=== PATIENT | female | born 1945 | race Caucasian/White ===

== ENCOUNTER 2022-06-16 22:08 | Inpatient (IN) | payer MEDICARE, MEDICAID ==
[~2022-06-16] VITALS: Ht 167.6 cm; Wt 62.0 kg
[2022-06-16] MEDS ORDERED: ETOMIDATE 2 MG/ML 10 ML VIAL ONE (22:15)
[2022-06-16] MEDS ORDERED: SUCCINYLCHOLINE CHLORIDE 20 MG/ML 10 ML VIAL ONE (22:16)
[2022-06-16] MEDS ORDERED: ACETAMINOPHEN 1000 MG/ISO-OSM 100 ML IV ONE (22:30)
[2022-06-16] MEDS ORDERED: ETOMIDATE 2 MG/ML 10 ML VIAL IVP ONE (22:30)
[2022-06-16] MEDS ORDERED: SODIUM CHLORIDE 0.9% 1,000 ML IV ONE ×2 (22:30→23:30)
[2022-06-16] MEDS ORDERED: SUCCINYLCHOLINE CHLORIDE 20 MG/ML 10 ML VIAL IVP ONE (22:30)
[2022-06-16 22:55] LABS: ABG BASE EXCESS -24.8 mmol/L (-2.0-3.0); ABG CARBOXYHEMOGLOBIN 0.3 % (0.0-1.5); ABG METHEMOGLOBIN 0.6 % (0.0-1.5); ABG OXYGEN CONTENT 21.6 mL/dL (15.0-23.0); ABG OXYGEN SATURATION 99.6 % (95.0-98.0); ABG OXYHEMOGLOBIN 98.7 % (94.0-100.0); ABG PCO2 30 mmHg (35-45); ABG TOTAL HEMOGLOBIN 14.6 G/dL (12.0-18.0); PO2, ARTERIAL BG 496.1 mmHg (75.0-83.0); SOURCE, BLOOD GAS ARTERIAL; TEMPERATURE, FAHRENHEIT, BG 101.6 FAHREN (96.0-98.6)
[2022-06-16 22:55] LABS: COVID AG,FIA SOURCE NASOPHARYNGEAL
[2022-06-16 22:56] LABS: ABG HCO3 8.2 mmol/L (22.0-26.0); ABG PH 6.975 (7.35-7.450); PEEP,BG 5 cm H2O; SITE, BLOOD GAS FEM; VT, ABG 500 ml
[2022-06-16 23:19] LABS: INFLUENZA TYPE A NEGATIVE FOR TYPE A (NEGATIVE); INFLUENZA TYPE B NEGATIVE FOR TYPE B (NEGATIVE)
[2022-06-16 23:19] LABS: BASOPHILS % (AUTO) 0.7 % (0.0-2.0); EOSINOPHILS % (AUTO) 0.8 % (1.0-6.0); HEMATOCRIT 41.3 % (36-46); HEMOGLOBIN 11.4 g/dL (12.0-16.0); LYMPHOCYTES # (AUTO) 0.6 K/uL (1.0-4.8); LYMPHOCYTES % (AUTO) 8.1 % (22.0-44.0); MEAN CORPUSCULAR HEMOGLOBIN 27.9 pg (26.0-34.0); MEAN CORPUSCULAR HGB CONC 27.6 G/dL (31.0-37.0); MEAN CORPUSCULAR VOLUME 101 fL (80-100); MONOCYTES # (AUTO) 0.2 K/uL (0.1-1.0); MONOCYTES % (AUTO) 2.5 % (2.0-9.0); RED BLOOD CELL COUNT(AUTO) 4.09 MIL/uL (4.00-5.20); RED CELL DISTRIBUTION WIDTH 18.9 % (11.5-14.5)
[2022-06-16 23:22] LABS: NEUTROPHILS % (AUTO) 87.9 % (40.0-70.0)
[2022-06-16 23:31] LABS: PLATELET COUNT (AUTO) 62 K/uL (150-450); PLATELET MORPHOLOGY COMMENT LARGE PLTS PRESENT
[2022-06-16 23:36] LABS: ALANINE AMINOTRANSFERASE 28 U/L (12-78); ALBUMIN 1.8 g/dL (3.4-5.0); ALKALINE PHOSPHATASE 130 U/L (46-116); ASPARTATE AMINOTRANSFERASE 33 U/L (15-37); BILIRUBIN,TOTAL 0.3 mg/dL (0.1-1.0); CALCIUM, TOTAL 7.2 mg/dL (8.8-10.5); CARBON DIOXIDE 10 mmol/L (22-29); CHLORIDE 135 mmol/L (98-107); CREATINE KINASE, TOTAL ONLY 190 U/L (26-192); CREATININE 3.42 mg/dL (0.60-1.30); POTASSIUM 5.3 mmol/L (3.5-5.1); TOTAL PROTEIN, SERUM 4.6 g/dL (6.4-8.2)
[2022-06-16 23:50] LABS: ANION GAP 21 mmol/L (8-16); GLOMERULAR FILTR. RATE CALC 13 mL/min (>60); LACTIC ACID 9.6 mmol/L (0.4-2.0); SODIUM SERUM 166 mmol/L (136-145)
[2022-06-16 23:51] LABS: GLUCOSE,RANDOM 652 mg/dL (70-110); UREA NITROGEN, BLOOD 123 mg/dL (7-18)
[2022-06-17] MEDS ORDERED: INSULIN REGULAR, HUMAN 100 UNITS/ML IVP ONE ×2 (00:15→07:15)
[2022-06-17] MEDS ORDERED: FentaNYL CIT 1000MCG/0.9% NACL 100 ML IV PRN (00:15)
[2022-06-17] MEDS ORDERED: SODIUM CHLORIDE 0.9% 1,000 ML IV ONE (00:15)
[2022-06-17] MEDS ORDERED: MIDAZOLAM HCL 100 MG in SODIUM CHLORIDE 0.9% 180 ML IV PRN (00:15)
[2022-06-17] MEDS ORDERED: NOREPINEPHRINE 8 MG/D5%-WATER 250 ML IV PRN (00:15)
[2022-06-17] MEDS ORDERED: LEVOFLOXACIN 500 MG/D5% WATER 100 ML IV ONE (00:15)
[2022-06-17] MEDS ORDERED: PIPERACILLIN/TAZO 3.375 GM/D5W 50 ML IV ONE (00:15)
[2022-06-17 00:49] LABS: APPEARANCE,URINE CLEAR (CLEAR); BILIRUBIN,URINE NEGATIVE (NEGATIVE); GLUCOSE, URINE (UA) >=1000 mg/dL (NEGATIVE); KETONES,URINE NEGATIVE (NEGATIVE); LEUKOCYTE ESTERASE ,URINE NEGATIVE (NEGATIVE); NITRATE,URINE NEGATIVE (NEGATIVE); OCCULT BLOOD,URINE NEGATIVE (NEGATIVE); PROTEIN,URINE NEGATIVE (NEGATIVE); SPECIFIC GRAVITIY, URINE 1.027 (1.003-1.030); UROBILINOGEN,URINE <=1.0 mg/dL (<=1.0)
[2022-06-17 01:01] LABS: BACTERIA,URINE None Seen /HPF (None Seen); MUCUS,URINE Few LPF (None Seen); RBC,URINE 0-2 /HPF (0-2); SQUAMOUS EPITHELIAL CELL,UR Few /LPF (None Seen); WBC,URINE 0-2 /HPF (0-5)
[2022-06-17] MEDS ORDERED: ACETAMINOPHEN 325 MG TABLET PO PRN (02:00)
[2022-06-17] MEDS ORDERED: INSULIN LISPRO 100 UNITS/ML SQ PRN (02:00)
[2022-06-17] MEDS ORDERED: SODIUM CHLORIDE 0.9% 1,000 ML IV SCH (02:00)
[2022-06-17] MEDS ORDERED: MORPHINE SULFATE 2 MG/ML SYRINGE IVP PRN (02:00)
[2022-06-17] MEDS ORDERED: *CLINICAL-CEFEPIME DOSING CLINICAL ONE (02:00)
[2022-06-17] MEDS ORDERED: ONDANSETRON HCL 4 MG/2 ML VIAL IVP PRN (02:00)
[2022-06-17] MEDS ORDERED: DEXTROSE 50%-WATER 25 GM/50 ML SYRINGE IVP PRN ×2 (02:00→03:00)
[2022-06-17] MEDS ORDERED: ATOR20TA65 PO (02:05)
[2022-06-17] MEDS ORDERED: LEVO25TA9 PO (02:05)
[2022-06-17] MEDS ORDERED: DOXY-354 PO (02:05)
[2022-06-17] MEDS ORDERED: PREN1CAP27 PO (02:05)
[2022-06-17] MEDS ORDERED: ACET325T51 PO (02:05)
[2022-06-17] MEDS ORDERED: DULO30CA52 PO (02:05)
[2022-06-17] MEDS ORDERED: VANCOMYCIN HCL 1.25 GM in DEXTROSE 5%-WATER 250 ML IV ONE (02:15)
[2022-06-17] MEDS ORDERED: VANCOMYCIN 1GM/WATER(PEG/NADA) 200 ML IV PRN (02:15)
[2022-06-17 02:29] LABS: CREATININE,URINE RANDOM 65.7 mg/dL (30.0-125.0)
[2022-06-17] MEDS ORDERED: ALBUTEROL SULFATE 2.5 MG/0.5 ML NEB SOLUTION NEB PRN (02:30)
[2022-06-17] MEDS ORDERED: IPRATROPIUM BROMIDE 0.5 MG/2.5 ML NEB SOLUTION NEB PRN (02:30)
[2022-06-17] MEDS ORDERED: SODIUM CHLORIDE 0.45% 1,000 ML IV ONE (02:30)
[2022-06-17 02:36] LABS: GLUCOSE,POINT OF CARE > 600 MG/DL (70-110)
[2022-06-17] MEDS ORDERED: DEXTROSE 5%-0.45% SODIUM CHL 1,000 ML IV PRN (03:00)
[2022-06-17] MEDS ORDERED: POTASSIUM CHLORIDE 40 MEQ in SODIUM CHLORIDE 0.45% 1,000 ML IV PRN (03:00)
[2022-06-17] MEDS ORDERED: POTASSIUM CHL 20 MEQ/0.45% NS 1,000 ML IV PRN (03:00)
[2022-06-17] MEDS ORDERED: SODIUM CHLORIDE 0.45% 1,000 ML IV PRN (03:00)
[2022-06-17 03:05] LABS: ABG BASE EXCESS -20.7 mmol/L (-2.0-3.0); ABG CARBOXYHEMOGLOBIN 0.3 % (0.0-1.5); ABG HCO3 10.5 mmol/L (22.0-26.0); ABG METHEMOGLOBIN 0.4 % (0.0-1.5); ABG OXYGEN CONTENT 19.6 mL/dL (15.0-23.0); ABG OXYGEN SATURATION 97.1 % (95.0-98.0); ABG OXYHEMOGLOBIN 96.4 % (94.0-100.0); ABG PCO2 29 mmHg (35-45); ABG TOTAL HEMOGLOBIN 14.4 G/dL (12.0-18.0); PO2, ARTERIAL BG 115.4 mmHg (75.0-83.0); SOURCE, BLOOD GAS ARTERIAL; TEMPERATURE, FAHRENHEIT, BG 99.3 FAHREN (96.0-98.6)
[2022-06-17 03:06] LABS: PEEP,BG 5 cm H2O; SITE, BLOOD GAS FEMORAL; VT, ABG 500 ml
[2022-06-17 03:15] LABS: HEMOGLOBIN 13.6 g/dL (12.0-16.0)
[2022-06-17] MEDS ORDERED: SODIUM CHLORIDE 0.9% 100 ML ONE (03:16)
[2022-06-17] MEDS ORDERED: INSULIN REGULAR, HUMAN 100 UNITS/ML ONE (03:17)
[2022-06-17 03:19] LABS: BASOPHILS % (AUTO) 0.3 % (0.0-2.0); HEMATOCRIT 47.7 % (36-46); LYMPHOCYTES % (AUTO) 9.1 % (22.0-44.0); MEAN CORPUSCULAR HEMOGLOBIN 27.9 pg (26.0-34.0); MEAN CORPUSCULAR HGB CONC 28.5 G/dL (31.0-37.0); MEAN CORPUSCULAR VOLUME 98 fL (80-100); MONOCYTES # (AUTO) 0.2 K/uL (0.1-1.0); MONOCYTES % (AUTO) 2.3 % (2.0-9.0); NEUTROPHILS # (AUTO) 9.3 K/uL (1.8-7.7); PLATELET COUNT (AUTO) 64 K/uL (150-450); RED BLOOD CELL COUNT(AUTO) 4.87 MIL/uL (4.00-5.20); RED CELL DISTRIBUTION WIDTH 19.5 % (11.5-14.5)
[2022-06-17 03:37] LABS: NEUTROPHILS % (AUTO) 87.3 % (40.0-70.0)
[2022-06-17] MEDS: INSULIN REGULAR, HUMAN 100 UNITS in SODIUM CHLORIDE 0.9% 99 ML IV PRN ×4 (04:02→11:37)
[2022-06-17 04:04] LABS: CALCIUM, TOTAL 8.2 mg/dL (8.8-10.5); CREATININE 3.65 mg/dL (0.60-1.30); POTASSIUM 5.9 mmol/L (3.5-5.1)
[2022-06-17] MEDS: CEFEPIME HCL 1 GM in DEXTROSE 5%-WATER 50 ML IV SCH (06:17)
[2022-06-17 07:43] LABS: CALCIUM, TOTAL 7.6 mg/dL (8.8-10.5); CREATININE 3.55 mg/dL (0.60-1.30); MAGNESIUM 2.5 mg/dL (1.80-2.40); PHOSPHORUS 7.8 mg/dL (2.5-4.9); POTASSIUM 5.7 mmol/L (3.5-5.1)
[2022-06-17] MEDS ORDERED: SODIUM BICARBONATE [ADULT] 8.4% 50 MEQ/50 ML SYRINGE IVP ONE (08:00)
[2022-06-17] MEDS ORDERED: HEPARIN SODIUM,PORCINE 5,000 UNITS/ML VIAL SQ SCH (08:00)
[2022-06-17 08:10] LABS: LACTIC ACID 6.3 mmol/L (0.4-2.0)
[2022-06-17] MEDS: INSULIN REGULAR, HUMAN 100 UNITS/ML IVP PRN ×4 (09:22→13:18)
[2022-06-17 09:56] LABS: GLUCOMETER DEV NAME(LOC) ERT.5; GLUCOSE,POINT OF CARE 592 MG/DL (70-110)
[2022-06-17 10:41] LABS: GLUCOSE,POINT OF CARE 574 MG/DL (70-110)
[2022-06-17] MEDS: NOREPINEPHRINE 8 MG/D5%-WATER 250 ML IV PRN (11:38)
[2022-06-17 12:00] VITALS: BP 102/71
[2022-06-17 14:16] LABS: GLUCOSE,POINT OF CARE 395 MG/DL (70-110)
[2022-06-17 14:16] LABS: GLUCOSE,POINT OF CARE 347 MG/DL (70-110)
[2022-06-17 14:16] LABS: GLUCOSE,POINT OF CARE 476 MG/DL (70-110)
[2022-06-17] MEDS: DEXTROSE 5%-0.45% SODIUM CHL 1,000 ML IV SCH ×2 (14:28→19:19)
[2022-06-17 15:26] LABS: HEMATOCRIT 43.2 % (36-46); HEMOGLOBIN 12.9 g/dL (12.0-16.0); MEAN CORPUSCULAR HEMOGLOBIN 27.2 pg (26.0-34.0); MEAN CORPUSCULAR HGB CONC 29.9 G/dL (31.0-37.0); MEAN CORPUSCULAR VOLUME 91 fL (80-100); RED BLOOD CELL COUNT(AUTO) 4.75 MIL/uL (4.00-5.20); RED CELL DISTRIBUTION WIDTH 18.5 % (11.5-14.5)
[2022-06-17 15:32] LABS: CALCIUM, TOTAL 7.2 mg/dL (8.8-10.5); CREATININE 3.3 mg/dL (0.60-1.30); POTASSIUM 4.7 mmol/L (3.5-5.1)
[2022-06-17 16:00] VITALS: BP 103/58
[2022-06-17 16:21] LABS: PLATELET COUNT (AUTO) 44 K/uL (150-450)
[2022-06-17 16:27] LABS: BAND NEUTROPHILS % (MANUAL) 31 % (0-5); LYMPHOCYTES % (MANUAL) 17 % (22-44); METAMYELOCYTES % 2 % (0-0); MONOCYTES % (MANUAL) 4 % (2-9); SEGMENTED NEUTROPHILS % 46 % (40-70)
[2022-06-17 16:42] LABS: D-DIMER 35.2 mg/L FEU (0.00-0.50); INR 1.3 (0.9-1.1)
[2022-06-17 18:26] LABS: GLUCOSE,POINT OF CARE 254 MG/DL (70-110)
[2022-06-17 18:26] LABS: GLUCOSE,POINT OF CARE 245 MG/DL (70-110)
[2022-06-17 20:00] VITALS: BP 103/43
[2022-06-17 20:14] LABS: CALCIUM, TOTAL 6.8 mg/dL (8.8-10.5); CREATININE 3.45 mg/dL (0.60-1.30); MAGNESIUM 1.8 mg/dL (1.80-2.40); PHOSPHORUS 6.8 mg/dL (2.5-4.9); POTASSIUM 5.6 mmol/L (3.5-5.1)
[2022-06-18] VITALS: BP 100/72
[2022-06-18] LABS: CALCIUM, TOTAL 6.8 mg/dL (8.8-10.5); CREATININE 3.54 mg/dL (0.60-1.30)
[2022-06-18 00:02] LABS: POTASSIUM 6.1 mmol/L (3.5-5.1)
[2022-06-18] MEDS: HEPARIN SODIUM,PORCINE 5,000 UNITS/ML VIAL SQ SCH ×2 (00:12→08:46)
[2022-06-18] MEDS ORDERED: DEXTROSE 25%-WATER 2.5 GM/10 ML SYRINGE IVP ONE (00:45)
[2022-06-18] MEDS ORDERED: INSULIN REGULAR, HUMAN 100 UNITS/ML IVP ONE (00:45)
[2022-06-18] MEDS ORDERED: CALCIUM GLUCONATE 1,000 MG in DEXTROSE 5%-WATER 50 ML IV ONE (01:00)
[2022-06-18] MEDS ORDERED: DEXTROSE 50%-WATER 25 GM/50 ML SYRINGE IVP ONE (01:00)
[2022-06-18] MEDS ORDERED: SODIUM ZIRCONIUM CYCLOSILICATE 5 GM POWDER PACKET PO ONE (01:00)
[2022-06-18] MEDS ORDERED: FentaNYL CIT 1000MCG/0.9% NACL 100 ML IV PRN (02:00)
[2022-06-18] MEDS: DEXTROSE 5%-0.45% SODIUM CHL 1,000 ML IV SCH ×3 (02:48→10:47)
[2022-06-18 04:00] VITALS: BP 103/57
[2022-06-18] MEDS: CEFEPIME HCL 1 GM in DEXTROSE 5%-WATER 50 ML IV SCH (06:11)
[2022-06-18 08:00] VITALS: BP 97/48
[2022-06-18 08:20] LABS: GLUCOSE,POINT OF CARE 249 MG/DL (70-110)
[2022-06-18 08:21] LABS: GLUCOSE,POINT OF CARE 232 MG/DL (70-110)
[2022-06-18 08:21] LABS: GLUCOSE,POINT OF CARE 235 MG/DL (70-110)
[2022-06-18 08:21] LABS: GLUCOSE,POINT OF CARE 221 MG/DL (70-110)
[2022-06-18 08:21] LABS: GLUCOSE,POINT OF CARE 192 MG/DL (70-110)
[2022-06-18 08:21] LABS: GLUCOSE,POINT OF CARE 259 MG/DL (70-110)
[2022-06-18 08:21] LABS: GLUCOSE,POINT OF CARE 235 MG/DL (70-110)
[2022-06-18] MEDS: NOREPINEPHRINE 8 MG/D5%-WATER 250 ML IV PRN (09:19)
[2022-06-18] MEDS: INSULIN REGULAR, HUMAN 100 UNITS in SODIUM CHLORIDE 0.9% 99 ML IV PRN ×2 (10:35)
[2022-06-18 12:00] VITALS: BP 104/57
[2022-06-18] MEDS ORDERED: ATROPINE SULFATE 0.1 MG/ML 10 ML SYRINGE IVP ONE (13:02)
[2022-06-18] MEDS ORDERED: AMIODARONE HCL 50 MG/ML 3 ML VIAL IV ONE (13:02)
[2022-06-18] MEDS ORDERED: EPINEPHrine 1:10,000 [1 MG/10 ML] SYRINGE IVP ONE (13:02)
[2022-06-18] MEDS ORDERED: SODIUM BICARBONATE [ADULT] 8.4% 50 MEQ/50 ML SYRINGE IVP ONE (13:02)
[2022-06-18] MEDS ORDERED: CALCIUM GLUCONATE 100 MG/ML 10 ML IVP ONE (13:02)
[2022-06-18 21:06] LABS: GLUCOSE,POINT OF CARE 166 MG/DL (70-110)
[2022-06-18 21:06] LABS: GLUCOSE,POINT OF CARE 177 MG/DL (70-110)
[2022-06-18 21:11] LABS: GLUCOSE,POINT OF CARE 192 MG/DL (70-110)
[2022-06-19 03:31] LABS: GLUCOSE,POINT OF CARE 181 MG/DL (70-110)
== END 2022-06-18 13:03 | DRG 871 ==
LOC: EMS 22:08 → ICU 06-17 06:00
PROVIDERS: ADMIT Internal Medicine; ATTEND Internal Medicine
PROC: 5A1945Z Respiratory Ventilation, 24-96 Consecutive Hours (ICD-10-PCS; principal; 2022-06-17)
PROC: 0BH17EZ Insertion of Endotracheal Airway into Trachea, Via Natural or Artificial Opening (ICD-10-PCS; 2022-06-17)
PROC: 5A12012 Performance of Cardiac Output, Single, Manual (ICD-10-PCS; 2022-06-18)
DX: A41.9 Sepsis, unspecified organism (principal); E11.10 Type 2 diabetes mellitus with ketoacidosis without coma; E43 Unspecified severe protein-calorie malnutrition; G92.8 Other toxic encephalopathy; J96.01 Acute respiratory failure with hypoxia; R65.21 Severe sepsis with septic shock; N17.0 Acute kidney failure with tubular necrosis; J18.9 Pneumonia, unspecified organism; N18.6 End stage renal disease; E87.0 Hyperosmolality and hypernatremia; E87.4 Mixed disorder of acid-base balance; I47.20 Ventricular tachycardia, unspecified; I69.351 Hemiplegia and hemiparesis following cerebral infarction affecting right dominant side; R64 Cachexia; I12.0 Hypertensive chronic kidney disease with stage 5 chronic kidney disease or end stage renal disease; Z20.822 Contact with and (suspected) exposure to COVID-19; D69.59 Other secondary thrombocytopenia; E11.51 Type 2 diabetes mellitus with diabetic peripheral angiopathy without gangrene; E03.9 Hypothyroidism, unspecified; E11.65 Type 2 diabetes mellitus with hyperglycemia; E11.22 Type 2 diabetes mellitus with diabetic chronic kidney disease; E78.00 Pure hypercholesterolemia, unspecified; E83.39 Other disorders of phosphorus metabolism; E86.0 Dehydration; J44.9 Chronic obstructive pulmonary disease, unspecified; F03.90 Unspecified dementia, unspecified severity, without behavioral disturbance, psychotic disturbance, mood disturbance, and anxiety; E87.5 Hyperkalemia; F32.A Depression, unspecified; R62.7 Adult failure to thrive; I46.9 Cardiac arrest, cause unspecified; I49.01 Ventricular fibrillation; Z68.22 Body mass index [BMI] 22.0-22.9, adult; Z79.899 Other long term (current) drug therapy; Z74.01 Bed confinement status
CPT/HCPCS: 31500; 36556; 36600; 51702; 70450; 71045; 76770; 80048; 80053; 81001; 81003; 82550; 82570; 82805; 82947; 82962; 83605; 83735; 84100; 84300; 84484; 85025; 85379; 85384; 85610; 85730; 87040; 87081; 87481; 87804; 92950; 93005; 93308; 93925; 93970; 94002; 94003; 94640; 99291; G0378; J0131; J0171; J0282; J0330; J0461; J0610; J0692; J1644; J1815; J1956; J2250; J2543; J3370; J3490; J7030; J7050; J7060; Q9967; 36415-L1; 36415-TC; J7613